=== PATIENT | female | born 1945 | race Two or more races ===

== ENCOUNTER 2024-04-18 10:09 | Outpatient (AMB) | payer MEDICARE, SELFPAY ==
--- NOTE | 2024-04-18 10:24 | PD.ORTHCLVIS ---
Vital signs 04/18/24 10:28 Height 1.57 m Height Method Stated Weight 61.008 kg Weight Measurement Method Standing Scale BMI 24.5 BP 127/79 Blood Pressure Source Automatic Cuff Blood Pressure Location Right Upper Arm Position Sitting Respiration 18 Pulse 64 Pulse Source Monitor Temp 97.3 F Temp Source Temporal Artery Scan Pulse Oximetry (%) 99 Oxygen Delivery Method Room Air Med/Allergies Allergies & Medications Allergies NKA* Allergy (Uncoded 04/18/24 10:24) Medication Reconciliation Levothyroxine * (SYNTHROID *) 75 mcg PO QDAY 30 days ##0 10/08/15 [History Confirmed 04/18/24] Lisinopril/Hydrochlorothiazide (Lisinopril-Hctz 20/25 Mg Tab) 1 mg PO QDAY 90 days ##0 10/08/15 [History Confirmed 04/18/24] gabapentin 100 mg capsule 100 mg PO TID 60 days ##0 10/08/15 [History] diclofenac sodium 50 mg tablet,delayed release 50 mg PO BID ##0 12/08/16 [History] acetaminophen 650 mg tablet,extended release (Tylenol 8 Hour) 650 mg PO Q8H #30 tabs 05/22/23 [Rx] hydrocodone 5 mg-acetaminophen 325 mg tablet 1 tab PO Q8H PRN pain #10 tabs 05/22/23 [Rx] atorvastatin 20 mg/5 mL (4 mg/mL) oral suspension 20 mg PO QDAY 04/18/24 [History Confirmed 04/18/24] celecoxib 200 mg capsule 200 mg PO QDAY 04/18/24 [History Confirmed 04/18/24] cholecalciferol (vitamin D3) 50 mcg (2,000 unit) capsule 50 mcg PO QDAY 04/18/24 [History Confirmed 04/18/24] clotrimazole 1 % topical solution 1 applic topical BID 04/18/24 [History Confirmed 04/18/24] terbinafine 250 mg oral tablet-hydroxypropyl chitosan 1 % topical kit ea miscellaneous 04/18/24 [History Confirmed 04/18/24] Subjective Visit Visit for: new patient and knee (RIGHT) Immunization / Flu Flu Vaccine in the Last 12 Months: Yes Flu Vaccine Exclusion Criteria: Already Received History of Present Illness Patient is a 78-year-old female comes in today for right knee pain has been going on for several years. Per daughter at bedside who is translating, patient has been having significant pain to her right knee for some time. Pain is present to her bilateral knees but significantly worse to her right knee. Patient obtained an x-ray imaging and 1 injection last year but since then she has had no other injections or imaging done. Patient has tried pain medications but not but not fully resolved it. No physical therapy has been done prior to coming into today. Daughter mentions that patient ambulates with dragging of her right foot as well. Patient also ambulates with a cane. Pain Pain level (0-10): 8 Pain duration: WITH MOVEMENT ALL DAY Pain location: inside (medial), outside (lateral), anterior and posterior Pain quality: sharp, dull, aching and shocking Pain timing: night and increases with activity Associated signs & symptoms: none Ambulatory data Ambulatory device: cane Treatments Number of previous injections: 1 Improvement with previous injections: No Improvement with PT: No Improvement with NSAIDS: no Review of Systems Review of Systems: All systems negative unless otherwise noted in HPI. Assessment and Plan Advanced Care Planning Discussion Advance care planning discussed with:: patient Office Procedures GNS Level of Care Nursing/Assessment Patient Status: Established Patient Nursing Assessment/Reassesment: Medication Reconciliation, Update PMH in EMR and Vital Signs Coordination of Care: Complex Care and Chronic Disease 1-5, Education Complex Pt/Fam, Consent,records obtained, informed consent, 1 Ins Authorization and Staff clarify orders Established Patient Charge Established Patient Point Assignment: 105 Established Patient Point Charge: EP Level 3 (80-115) Past Medical History Past Medical History Have you ever been diagnosed with any of the following: Respiratory Problems Smoking: No Smoking Exposure: No
[2024-04-18 10:28] VITALS: BP 127/79; PULSE 64; RESP 18; TEMP 36.3; O2SAT 99; BMI 24.5
== END 2024-04-18 10:46 | disposition home or self-care (01) ==
LOC: HODSRG 10:09
PROVIDERS: PCP Physician Assistant Medical; Referring Provider Physician Assistant Medical; Supervising Provider Orthopaedic Surgery Adult Reconstructive Orthopaedic Surgery; Visit Provider Orthopaedic Surgery Adult Reconstructive Orthopaedic Surgery
DX: M25.561 Pain in right knee (principal); M25.562 Pain in left knee
CPT/HCPCS: 99213; G0463

== ENCOUNTER 2024-05-05 10:22 | Outpatient (AMB) | payer MEDICARE, SELFPAY ==
[2024-05-05 10:44] VITALS: BP 146/85; PULSE 73; RESP 19; TEMP 36.6; O2SAT 98; BMI 24.7
--- NOTE | 2024-05-05 10:44 | ORTHONT_ITS ---
Vital signs 05/05/24 10:44 Height 1.57 m Height Method Stated Weight 60.98 kg Weight Measurement Method Standing Scale BMI 24.7 BP 146/85 H Blood Pressure Source Automatic Cuff Blood Pressure Location Left Upper Arm Position Sitting Respiration 19 Pulse 73 Pulse Source Monitor Temp 97.8 F Temp Source Temporal Artery Scan Pulse Oximetry (%) 98 Oxygen Delivery Method Room Air Med/Allergies Allergies & Medications Allergies NKA* Allergy (Uncoded 05/05/24 10:44) Medication Reconciliation Levothyroxine * (SYNTHROID *) 75 mcg PO QDAY 30 days ##0 10/08/15 [History Confirmed 05/05/24] Lisinopril/Hydrochlorothiazide (Lisinopril-Hctz 20/25 Mg Tab) 1 mg PO QDAY 90 days ##0 10/08/15 [History Confirmed 05/05/24] gabapentin 100 mg capsule 100 mg PO TID 60 days ##0 10/08/15 [History Confirmed 05/05/24] diclofenac sodium 50 mg tablet,delayed release 50 mg PO BID ##0 12/08/16 [History Confirmed 05/05/24] acetaminophen 650 mg tablet,extended release (Tylenol 8 Hour) 650 mg PO Q8H #30 tabs 05/22/23 [Rx Confirmed 05/05/24] hydrocodone 5 mg-acetaminophen 325 mg tablet 1 tab PO Q8H PRN pain #10 tabs 05/22/23 [Rx Confirmed 05/05/24] atorvastatin 20 mg/5 mL (4 mg/mL) oral suspension 20 mg PO QDAY 04/18/24 [History Confirmed 05/05/24] celecoxib 200 mg capsule 200 mg PO QDAY 04/18/24 [History Confirmed 05/05/24] cholecalciferol (vitamin D3) 50 mcg (2,000 unit) capsule 50 mcg PO QDAY 04/18/24 [History Confirmed 05/05/24] clotrimazole 1 % topical solution 1 applic topical BID 04/18/24 [History Confirmed 05/05/24] terbinafine 250 mg oral tablet-hydroxypropyl chitosan 1 % topical kit ea mis cellaneous 04/18/24 [History Confirmed 05/05/24] Subjective Visit Visit for: follow up visit Immunization / Flu Flu Vaccine in the Last 12 Months: No Flu Vaccine Exclusion Criteria: No Exclusion Criteria History of Present Illness Chief complaint: 2 WEEK FOLLOW UP Patient is a 78-year-old female comes in today for right knee pain has been going on for several years. Per daughter at bedside who is translating, patient has been having significant pain to her right knee for some time. Pain is present to her bilateral knees but significantly worse to her right knee. Patient obtained an x-ray imaging and 1 injection last year but since then she has had no other injections or imaging done. Patient has tried pain medications but not but not fully resolved it. No physical therapy has been done prior to coming into today. Daughter mentions that patient ambulates with dragging of her right foot as well. Patient also ambulates with a cane. Pain Pain level (0-10): 0 Pain duration: WITH MOVEMENT ALL DAY Pain location: inside (medial), outside (lateral), anterior and posterior Pain quality: sharp, dull, aching and shocking Pain timing: night and increases with activity Associated signs & symptoms: none Ambulatory data Ambulatory device: cane Treatments Number of previous injections: 1 Improvement with previous injections: No Improvement with PT: No Improvement with NSAIDS: no Review of Systems Review of Systems: All systems negative unless otherwise noted in HPI. Exam Exam Patient is in no acute distress and is cooperative with the examination today. Breathing is nonlabored. Patient has a normal mood and affect. Bilateral extremities were evaluated and demonstrates sensation intact to light touch. Palpable pedal pulses are present. No significant edema is present. Bilateral hips were examined. The patient has no pain with log roll of the hips. Internal rotation to 30 degrees and external rotation to 30 degrees is painless. Negative FADIR. Left knee was examined today. The left knee is in reasonable alignment. Range of motion from 0-120 degrees. Knee is stable to varus and valgus as well as AP translation with <5mm. Patient has a negative McMurrays. There is no pain with patellofemoral compression and no crepitus noted. The knee is nontender to pal pation. The right knee was also examined. The right knee is in valgus] alignment. Range of motion from [0-100 degrees. Knee is stable to varus and valgus as well as AP translation with <5mm. Patient has a [negative] McMurrays. There is [no] pain with patellofemoral compression and [no] crepitus noted. The knee is tender to palpation laterally Bilateral knee x-rays were reviewed. This demonstrates valgus alignment of both knees. Is complete obliteration of the lateral joint space and osteophytes present. There is quite a bit of tibial wear laterally Assessment and Plan Problem List (1) Rheumatoid arthritis: Status: Acute Plan: Patient is a 78-year-old female with bilateral knee pain and rheumatoid arthritis. The pain is worse on the right. We discussed total knee replacement is a reasonable option. She is already failed conservative treatment has significant valgus alignment. She has tried injections anti-inflammatories in the past. We thus discussed total knee replacement as a reasonable option The nature and purpose of the total knee replacement, alternative method(s) of treatment, the material risks involved, and the possibility of complications were fully explained to the patient. The patient does NOT have any of the following contraindications to TKA: - Active infection of the knee joint, OR - Active systemic bacteremia, OR - Active skin infection or open wound at surgical site, OR - Neuropathic arthritis, OR - Severe, rapidly progressive neurological disease, OR - Severe medical condition that makes risks of surgery outweigh the potential benefit The patient was told the most common risks and complications associated with a total knee replacement include, but are not limited to: blood clots in the leg, fatal pulmonary embolism, dislocation of the prosthesis, intraoperative and postoperative fractures of the femur or tibia, infection, failure of the prosthesis or grafting materials, complications from anesthesia, reactions to blood transfusions, postoperative leg length inequality, instability of the knee replacement, nerve damage or injury, vascular injury, delayed wound healing, infection, other injury or even . In addition, there are risks associated with anesthesia given during this operation. Also, the patient was told that after undergoing a total knee replacement there may still be persistent pain or disability. The patient was informed that the success of this operation in part depends upon the mechanical devices which are going to be implanted and that these devices can fail or malfunction, and may need to be repaired or replaced and there are no guarantees as to the longevity of this device or its parts and that it or its parts could fail prematurely. The patient was also notified that during the course of surgery, there may be a need to use bone graft from donors, and that any bone graft used will be carefully screened for communicable diseases, including AIDS, hepatitis, Adin-Creutzfeldt, or other diseases, but despite the screening procedures, there is a small chance that they could contract one of these diseases. Finally, the patient was asked to follow completely and fully with all advice and recommended treatments, and that recovery and ultimate outcome are affected by their compliance with recommended treatment. We discussed the risks, benefits and treatment alternatives, and the patient is interested in proceeding with surgery. We will try to set this up as expeditiously as possible. Advanced Care Planning Discussion Advance care planning discussed with:: patient Office Procedures GNS Level of Care Nursing/Assessment Patient Status: Established Patient Nursing Assessment/Reassesment: Medication Reconciliation, Update PMH in EMR and Vital Signs Coordination of Care: Complex Care and Chronic Disease 1-5, Education Complex Pt/Fam, Consent,records obtained, informed consent and Staff clarify orders Established Patient Charge Established Patient Point Assignment: 90 Established Patient Point Charge: EP Level 3 (80-115) Past Medical History Past Medical History Have you ever been diagnosed with any of the following: Respiratory Problems Smoking: No Smoking Exposure: No
== END 2024-05-05 11:07 | disposition home or self-care (01) ==
LOC: HODSRG 10:22
PROVIDERS: Supervising Provider Orthopaedic Surgery Adult Reconstructive Orthopaedic Surgery; Visit Provider Orthopaedic Surgery Adult Reconstructive Orthopaedic Surgery
DX: M06.9 Rheumatoid arthritis, unspecified (principal); M25.562 Pain in left knee; M25.561 Pain in right knee
CPT/HCPCS: 99213; G0463

== ENCOUNTER → 2024-05-31 | Outpatient (CLI) | payer MEDICARE, SELFPAY ==
--- NOTE | 2024-05-31 12:30 | XR_ITS ---
Examination: CT right lower extremity without contrast, without contrast. 2-D sagittal reconstructions. 2-D coronal reconstructions. 3-D reconstructions. Date and time of exam:May 31, 2024 1105 hours INDICATIONS: Right knee pain beginning 2 years ago CTDI: vol (mGy):9.45 DLP: (mGycm):6 7066 Technique: Multiple 1.25 mm axial sections of the right lower extremity without intravenous contrast have been obtained. 2-D sagittal and coronal reconstructions have been obtained. 3-D reconstructions have been obtained. Low dose protocols were performed. One or more of the following dose reduction techniques were used; automated exposure control, adjustment of the mA and/or KV according to patient size, use of iterative reconstruction technique. Findings: Prominent osteopenia Moderate to advanced narrowing right hip joint, no hip fracture or dislocation No avascular necrosis Advanced narrowing medial lateral and patellofemoral joints Ossifications in the suprapatellar joint space No fracture No avascular necrosis IMPRESSION: Advanced right knee tricompartment osteoarthritis
== END | disposition home or self-care (01) ==
PROVIDERS: PCP Physician Assistant Medical; Referring Provider Orthopaedic Surgery Adult Reconstructive Orthopaedic Surgery; Visit Provider Orthopaedic Surgery Adult Reconstructive Orthopaedic Surgery
DX: M17.11 Unilateral primary osteoarthritis, right knee (principal)
CPT/HCPCS: 73700

== ENCOUNTER 2024-06-13 09:41 | Outpatient (AMB) | payer MEDICARE, SELFPAY ==
[2024-06-13 10:18] VITALS: BP 123/86; PULSE 73; RESP 18; TEMP 36; O2SAT 99; BMI 24.6
--- NOTE | 2024-06-13 10:18 | ORTHONT_ITS ---
Vital signs 06/13/24 10:18 Height 1.57 m Height Method Stated Weight 60.81 kg Weight Measurement Method Standing Scale BMI 24.6 BP 123/86 H Blood Pressure Source Automatic Cuff Blood Pressure Location Left Upper Arm Position Sitting Respiration 18 Pulse 73 Pulse Source Monitor Temp 96.8 F Temp Source Temporal Artery Scan Pulse Oximetry (%) 99 Oxygen Delivery Method Room Air Med/Allergies Allergies & Medications Allergies NKA* Allergy (Uncoded 06/13/24 10:18) Medication Reconciliation Levothyroxine * (SYNTHROID *) 75 mcg PO QDAY 30 days ##0 10/08/15 [History Confirmed 06/13/24] Lisinopril/Hydrochlorothiazide (Lisinopril-Hctz 20/25 Mg Tab) 1 mg PO QDAY 90 days ##0 10/08/15 [History Confirmed 06/13/24] gabapentin 100 mg capsule 100 mg PO TID 60 days ##0 10/08/15 [History Confirmed 06/13/24] diclofenac sodium 50 mg tablet,delayed release 50 mg PO BID ##0 12/08/16 [History Confirmed 06/13/24] acetaminophen 650 mg tablet,extended release (Tylenol 8 Hour) 650 mg PO Q8H #30 tabs 05/22/23 [Rx Confirmed 06/13/24] hydrocodone 5 mg-acetaminophen 325 mg tablet 1 tab PO Q8H PRN pain #10 tabs 05/22/23 [Rx Confirmed 06/13/24] atorvastatin 20 mg/5 mL (4 mg/mL) oral suspension 20 mg PO QDAY 04/18/24 [History Confirmed 06/13/24] celecoxib 200 mg capsule 200 mg PO QDAY 04/18/24 [History Confirmed 06/13/24] cholecalciferol (vitamin D3) 50 mcg (2,000 unit) capsule 50 mcg PO QDAY 04/18/24 [History Confirmed 06/13/24] clotrimazole 1 % topical solution 1 applic topical BID 04/18/24 [History Confirmed 06/13/24] terbinafine 250 mg oral tablet-hydroxypropyl chitosan 1 % topical kit ea mis cellaneous 04/18/24 [History Confirmed 06/13/24] Subjective Visit Visit for: follow up visit and knee (RIGHT) Immunization / Flu Flu Vaccine in the Last 12 Months: No Flu Vaccine Exclusion Criteria: No Exclusion Criteria History of Present Illness Chief complaint: PRE OP R TKA Patient is a 78-year-old female comes in today for right knee pain has been going on for several years. Per daughter at bedside who is translating, patient has been having significant pain to her right knee for some time. Pain is present to her bilateral knees but significantly worse to her right knee. Patient obtained an x-ray imaging and 1 injection last year but since then she has had no other injections or imaging done. Patient has tried pain medications but not but not fully resolved it. No physical therapy has been done prior to coming into today. Daughter mentions that patient ambulates with dragging of her right foot as well. Patient also ambulates with a cane. Pain Pain level (0-10): 6 Pain duration: CONSTANT Pain location: inside (medial) Pain quality: aching Pain timing: night and increases with activity Associated signs & symptoms: none Ambulatory data Ambulatory device: cane Treatments Number of previous injections: 1 Improvement with previous injections: No Improvement with PT: No Improvement with NSAIDS: no Review of Systems Review of Systems: All systems negative unless otherwise noted in HPI. Exam Exam Patient is in no acute distress and is cooperative with the examination today. Breathing is nonlabored. Patient has a normal mood and affect. Bilateral extremities were evaluated and demonstrates sensation intact to light touch. Palpable pedal pulses are present. No significant edema is present. Bilateral hips were examined. The patient has no pain with log roll of the hips. Internal rotation to 30 degrees and external rotation to 30 degrees is painless. Negative FADIR. Left knee was examined today. The left knee is in reasonable alignment. Range of motion from 0-120 degrees. Knee is stable to varus and valgus as well as AP translation with <5mm. Patient has a negative McMurrays. There is no pain with patellofemoral compression and no crepitus noted. The knee is nontender to palpation. The right knee was also examined. The right knee is in valgus] alignment. Range of motion from [0-100 degrees. Knee is stable to varus and valgus as well as AP translation with <5mm. Patient has a [negative] McMurrays. There is [no] pain with patellofemoral compression and [no] crepitus noted. The knee is tender to palpation laterally Bilateral knee x-rays were reviewed. This demonstrates valgus alignment of both knees. Is complete obliteration of the lateral joint space and osteophytes present. There is quite a bit of tibial wear laterally Assessment and Plan Problem List (1) Rheumatoid arthritis: Status: Acute Plan: Patient is a 78-year-old female with bilateral knee pain and rheumatoid arthritis. The pain is worse on the right. We discussed total knee replacement is a reasonable option. She is already failed conservative treatment has significant valgus alignment. She has tried injections anti-inflammatories in the past. We thus discussed total knee replacement as a reasonable option. She is here for her preop appointment and we answered all her questions today The nature and purpose of the total knee replacement, alternative method(s) of treatment, the material risks involved, and the possibility of complications were fully explained to the patient. The patient does NOT have any of the following contraindications to TKA: - Active infection of the knee joint, OR - Active systemic bacteremia, OR - Active skin infection or open wound at surgical site, OR - Neuropathic arthritis, OR - Severe, rapidly progressive neurological disease, OR - Severe medical condition that makes risks of surgery outweigh the potential benefit The patient was told the most common risks and complications associated with a total knee replacement include, but are not limited to: blood clots in the leg, fatal pulmonary embolism, dislocation of the prosthesis, intraoperative and postoperative fractures of the femur or tibia, infection, failure of the prosthesis or grafting materials, complications from anesthesia, reactions to blood transfusions, postoperative leg length inequality, instability of the knee replacement, nerve damage or injury, vascular injury, delayed wound healing, infection, other injury or even . In addition, there are risks associated with anesthesia given during this operation. Also, the patient was told that after undergoing a total knee replacement there may still be persistent pain or disability. The patient was informed that the success of this operation in part depends upon the mechanical devices which are going to be implanted and that these devices can fail or malfunction, and may need to be repaired or replaced and there are no guarantees as to the longevity of this device or its parts and that it or its parts could fail prematurely. The patient was also notified that during the course of surgery, there may be a need to use bone graft from donors, and that any bone graft used will be carefully screened for communicable diseases, including AIDS, hepatitis, Adin-Creutzfeldt, or other diseases, but despite the screening procedures, there is a small chance that they could contract one of these diseases. Finally, the patient was asked to follow completely and fully with all advice and recommended treatments, and that recovery and ultimate outcome are affected by their compliance with recommended treatment. We discussed the risks, benefits and treatment alternatives, and the patient is interested in proceeding with s gianna. We will try to set this up as expeditiously as possible. Advanced Care Planning Discussion Advance care planning discussed with:: patient Office Procedures GNS Level of Care Nursing/Assessment Patient Status: Established Patient Nursing Assessment/Reassesment: Medication Reconciliation, Update PMH in EMR and Vital Signs Coordination of Care: Complex Care and Chronic Disease 1-5, Education Complex Pt/Fam, Consent,records obtained, informed consent, 1 Ins Authorization, Results/Orders obtained and Staff clarify orders Established Patient Charge Established Patient Point Assignment: 110 Established Patient Point Charge: EP Level 3 (80-115) Past Medical History Past Medical History Have you ever been diagnosed with any of the following: Respiratory Problems Smoking: No Smoking Exposure: No
== END 2024-06-13 10:34 | disposition home or self-care (01) ==
PROVIDERS: PCP Family Medicine; Referring Provider Family Medicine; Supervising Provider Orthopaedic Surgery Adult Reconstructive Orthopaedic Surgery; Visit Provider Orthopaedic Surgery Adult Reconstructive Orthopaedic Surgery
DX: M06.9 Rheumatoid arthritis, unspecified (principal); M25.562 Pain in left knee; M25.561 Pain in right knee
CPT/HCPCS: 99213; G0463

== ENCOUNTER 2024-06-19 05:50 | Day surgery (SDC) | payer MEDICARE, SELFPAY ==
--- NOTE | 2024-06-16 07:19 | EKG_ITS ---
[facility] Test Date: 2024-06-16 Pat Name: SIN ARAIZA Department: Room: - Gender: Female Sequins Slinger: JOHN : 1945 Requested By: Ernesto Schwartz Order Number: [id number] Reading MD: Ernesto Schwartz Measurements Intervals Craig Rate: 77 P: 49 UT: 145 QRS: 38 QRSD: 81 T: 38 QT: 368 QTc: 416 Interpretive Statements SINUS RHYTHM No previous ECG available for comparison /store/S0/[id number].pdf
[2024-06-16 10:43] VITALS: BMI 25.3
[2024-06-16 12:15] LABS: Basophils % (Auto) 1 % (0-2.5); Eosinophils # (Auto) 0.1 Thou/mm3 (0.0-0.5); Eosinophils % (Auto) 2 % (0-10); Hematocrit 40.4 % (36.0-46.0); Hemoglobin 13.6 g/dL (12.0-16.0); Immature Granulocytes % (Auto) 0 % (0-0); Immature Granulocytes Auto 0.01 Thou/mm3 (0.00-0.00); Lymphocytes # (Auto) 1.2 Thou/mm3 (1.0-4.8); Lymphocytes % (Auto) 21 % (10-50); Mean Corpuscular HGB Conc 33.7 g/dl (31.0-37.0); Mean Corpuscular Hemoglobin 31.1 pg (25.0-35.0); Mean Corpuscular Volume 92 fL (80-100); Monocytes # (Auto) 0.5 Thou/mm3 (0.0-0.8); Monocytes % (Auto) 9 % (0-12); Neutrophils # (Auto) 3.8 Thou/mm3 (1.8-7.7); Neutrophils % (Auto) 68 % (37-80); Nucleated Red Blood Cell % 0 /100 WBC (0); Platelet Count 226 Thou/mm3 (140-440); Red Blood Count 4.38 Miln/mm3 (4.00-5.20); White Blood Count 5.6 Thou/mm3 (3.6-11.0)
[2024-06-16 12:23] LABS: Partial Thromboplastin Time 24.6 Seconds (22.0-36.0)
[2024-06-16 12:43] LABS: Alanine Aminotransferase 14 U/L (10-49); Albumin, Serum 4.2 gm/dL (3.4-4.8); Albumin/Globulin Ratio 1.8 (1.2-2.2); Alkaline Phosphatase 90 U/L (46-116); Anion Gap 8 (7-16); Aspartate Amino Transferase 16 U/L (0-34); BUN/Creatinine Ratio 20 Ratio (12-20); Bilirubin,Total 0.4 mg/dL (0.3-1.2); Blood Urea Nitrogen 18 mg/dL (9-23); Calcium 9.8 mg/dL (8.3-10.6); Calcium (Corrected) 9.8 mg/dL (8.5-10.1); Carbon Dioxide 28.5 mMol/L (20.0-31.0); Chloride 105 mMol/L (98-107); Creatinine (Component) 0.9 mg/dL (0.6-1.3); Estimated Creatinine Clearance 44.5 mL/min (>60); Globulin 2.4 gm/dL (2.3-3.5); Glucose 93 mg/dL (74-106); Osmolality,Calculated 283 (275-295); Potassium 4.5 mMol/L (3.4-5.1); Sodium 141 mMol/L (136-145); Total Protein 6.6 gm/dL (5.7-8.2); eGFR > 60 See Note
[2024-06-19] VITALS (13 sets, daily range): BP systolic 104–151; BP diastolic 54–75; PULSE 71–94; RESP 12–20; TEMP 36.1–36.9; O2SAT 98–100; BMI 25.0; BMI 13.0
[2024-06-19] MEDS: ACETAMINOPHEN 325 MG TABLET 650 MG PO (06:47)
[2024-06-19] MEDS: PREGABALIN 75 MG CAPSULE PO (06:47)
[2024-06-19] MEDS: MELOXICAM 7.5 MG TABLET PO (06:47)
[2024-06-19] MEDS: RINGERS LACTATED 1000 ML 1,000 ML 20 ML IV (06:52)
--- NOTE | 2024-06-19 10:17 | SUR.PHASEI ---
pt received from OR in recovery bay 1. pt awake and alert, breathing unlabored on room air. v/s stable. pt dressing to right lower extremity cdi. report received from Charley MADSEN and Roula OBANDO.
--- NOTE | 2024-06-19 10:17 | SUR.PHASEI ---
pt received from OR in recovery bay 5. pt awake and alert, breathing unlabored on room air. v/s stable. pt dressing to right lower extremity cdi. report received from Charley MADSEN and Roula OBANDO.
--- NOTE | 2024-06-19 10:17 | XR_ITS ---
Examination: Right knee 2 views TECHNIQUE: AP lateral right knee 2 views Exam date and time: June 19, 2024 1042 hours INDICATIONS: Postop knee arthroplasty FINDINGS: Prominent osteopenia Total right knee replacement Satisfactory alignment IMPRESSION: Total right knee arthroplasty with satisfactory alignment No fracture
--- NOTE | 2024-06-19 10:20 | ESOP_ITS ---
Date of Procedure 06/19/24 Pre Op Diagnosis right knee osteoarthritis Post Op Diagnosis right knee osteoarthritis Procedure right total knee replacement Findings valgus deformity, soft bone. Procedure Description Indication: The patient is a 78 year old who has a long history of right knee pain. X-rays show degenerative arthritis involving the knee. Over the past several years the patient has had increasing pain, progressive limitation in function. He has failed conservative measures including activity modification, physical therapy, injections, anti-inflammatories, and assistive devices. After a lengthy discussion of the risks and benefits, the patient presents now for total knee replacement. The nature and purpose of the total knee replacement, alternative method(s) of treatment, the material risks involved, and the possibility of complications were fully explained to the patient. The patient was told the most common risks and complications associated with a total knee replacement include, but are not limited to blood clots in the leg, fatal pulmonary embolism, dislocation of the prosthesis, intraoperative and postoperative fractures of the femur or tibia, infection, failure of the prosthesis or grafting materials, complications from anesthesia, reactions to blood transfusions, postoperative leg length inequality, instability of the knee replacement, nerve damage or injury, vascular injury, delayed wound healing, infections, other injury or even . In addition, there are risks associated with anesthesia given during this operation, temporary or permanent numbness on the skin lateral to the incision can be a complication unique to total knee surgery, and kneeling can be painful after knee replacement surgery. Also, the patient was told that after undergoing a total knee replacement there may still be pain or disability. We discussed with the patient that we will be using a robot-assisted technology. We discussed that there is a possibility of converting to manual instrumentation. The patient was informed that the success of this operation in part depends upon the mechanical devices which are going to be implanted and that these devices can fail or malfunction, and may need to be repaired or replaced and there are no guarantees as to the longevity of this device or its part and that it or its parts could fail prematurely. Finally, the patient was asked to follow completely and fully with all advice and recommended treatments, and that recovery and ultimate outcome are affected by their compliance with recommended treatment. Surgical technique: Patient was marked and consented in the pre-operative area. The patient was brought to the operating room and placed on the operating table in a supine position. Prior to positioning, a timeout procedure was performed between the surgeon, the anesthesiologist, and the nursing staff where the patient and the operative side were identified and confirmed. After adequate general anesthetic was obtained, the right lower extremity was prepped and draped in the usual sterile fashion. A weight based dose of Cefazolin were administered within 1 hour prior to incision. The robot was preregistered and calirated before the incision. The extremity was exsanguinated with an esmarch badge and tourniquet inflated to 250mmHg. A midline incision was made. A median parapatellar arthrotomy was made. The patella was subluxed laterally. A medial release was performed to expose the medial tibia. His femoral and tibial pins were placed through an intra incisional manner for both cases. Every effort was made to ensure that the distalmost aspect of the pin was hung in the second cortex. The arrays were then tightened several times to ensure that it was fixed for the remainder of the case. Both femoral and tibial checkpoints were then placed. We then went through the registration process of the bone. We then assessed the knee deformity and attempted to correct it. We also used the robot to aid in judging laxity in both extension and flexion. Final based on laxity and alignment we changed the preoperative assessment to obtain proper proper implant positioning and to correct deformity. Attention was then placed to the tibia. We made a tibial cut using the robot ensuring that both the MCL and the patella tendon were protected with retractors. We then went to the femur and made the posterior cut followed by the anterior cut and the anterior chamfer. Her bone quality was found to be quite poor. The decision was thus made to use a 50mm stem. The bone was then removed and we made a distal femur cut and a posterior chamfer cut. We verified all cuts. A trial reduction was performed with a size 2 femoral component and a size 2 keeled tibial component with a 50mm stem. The patella tracked centrally, and no lateral retinacular release was necessary. The trial implants were removed. We decided to place a TS stem and prepared the femur for this. The arrays, pins, and checkpoints were all removed. We performed a verification that all pins were removed. The cut bone surfaces were lavaged. A size 2 right femoral component, a size 2 keeled tibial component were impacted into position using 2 bags of palacos. The knee was placed in extension until the cement hardened. The knee was felt to be well balanced in the sagittal and coronal plane. The final 2x11 mm TS articular insert was impacted into the tibial tray. The knee was brought out to full extension, flexed up to 120 degrees. It was stable to varus and valgus stress and appropriately balanced in flexion and extension. The wounds were copiously irrigated following deflation of tourniquet. The medial retinaculum was reapproximated with #1 vicryl and quill. The subcutaneous tissues were closed with 0 and 2-0 interrupted Vicryl. The skin was closed with 3-0 Monofilament V loc suture. A sterile dressing was applied. The patient was transferred to a bed and brought to recovery in stable condition. The patient tolerated the procedure well. There were no intraoperative complications. Sponge and needle counts were correct times 2. As the attending surgeon, I attest I was present and performed the entire operation. Grafts/Implants Size 2 CR Femur Size 2 Tibia 11mm poly TS 2 bags of palacos We placed a knee immobilizer on her given her soft tissue and poor bone quality. We will maintain the knee immobilizer for 2-4 weeks. She is WBAT Anesthesia GETA Implants aura Pathology / specimen None Pathology comment: anterior knee tissue sent Estimated Blood Loss 150 Surgeon Simone Israel MD Surgical Staff Operation Date: 06/19/24 07:30 Case Staff INSURANCE PREMIUM AUDITOR: Charley Krishnamurthy RN First Assistant: Renetta Ochoa
[2024-06-19] MEDS: fentaNYL CIT INJ 50 mCg/ML AMP 2ML 25 MCG IV ×2 (11:13→11:59)
--- NOTE | 2024-06-19 11:44 | SUR.PHASEII ---
pt able to tolerate oral fluids and food without difficulty swallowing or nausea/vomiting.
--- NOTE | 2024-06-19 12:58 | SUR.PHASEII ---
pt awake and alert, breathing unlabored on room air. v/s stable. pt dressing to right lower extremity cdi. pt cleared by physical therapist Keiko. pt able to ambulate to wheelchair with steady gait. d/c instructions given with daughter and grandson in room using japanese interpreter Maggie salter, all questions answered. pt d/c via wheelchair with all belongings.
== END 2024-06-19 12:58 | disposition home or self-care (01) ==
PROVIDERS: Anesthesiology; PCP Family Medicine; Referring Provider Orthopaedic Surgery Adult Reconstructive Orthopaedic Surgery; Visit Provider Orthopaedic Surgery Adult Reconstructive Orthopaedic Surgery
PROC: (CPT 27447; principal; 2024-06-19 07:30)
DX: M17.11 Unilateral primary osteoarthritis, right knee (principal); Z01.810 Encounter for preprocedural cardiovascular examination
CPT/HCPCS: 27447; 20985; 36415; 73560; 80053; 85025; 85610; 85730; 93005; 97162; A4217; C1713; C1776; J0131; J0171; J0690; J1100; J1885; J2371; J2405; J2704; J2795; J3010; J3490; J7030; J7120; A4648; A4649; A9270

== ENCOUNTER 2024-07-07 09:40 | Outpatient (AMB) | payer MEDICARE, SELFPAY ==
--- NOTE | 2024-07-07 09:56 | PD.ORTHCLVIS ---
Vital signs 07/07/24 09:57 Height 1.55 m Height Method Stated Weight 59.619 kg Weight Measurement Method Standing Scale BMI 24.8 BP 114/76 Blood Pressure Source Automatic Cuff Blood Pressure Location Left Upper Arm Position Sitting Respiration 18 Pulse 92 Pulse Source Monitor Temp 97.0 F Temp Source Temporal Artery Scan Pulse Oximetry (%) 98 Oxygen Delivery Method Room Air Med/Allergies Allergies & Medications Allergies No Known Allergies Allergy (Verified 07/07/24 09:58) Medication Reconciliation atorvastatin 20 mg tablet 20 mg PO QPM 06/16/24 [History Confirmed 07/07/24] celecoxib 200 mg capsule 200 mg PO BID 06/16/24 [History Confirmed 07/07/24] cholecalciferol (vitamin D3) 50 mcg (2,000 unit) tablet (Vitamin D3) 50 mcg PO QDAY 06/16/24 [History Confirmed 07/07/24] levothyroxine 50 mcg capsule 50 mcg PO QDAY 06/16/24 [History Confirmed 07/07/24] lisinopril 20 mg tablet 20 mg PO QDAY 06/16/24 [History Confirmed 07/07/24] terbinafine HCl 250 mg tablet 250 mg PO QDAY 06/16/24 [History Confirmed 07/07/24] acetaminophen 500 mg tablet (Acetaminophen Extra Strength) 1,000 mg (2 x 500 mg) PO Q6H PRN pain #90 tabs 06/19/24 [Rx Confirmed 07/07/24] aspirin 81 mg tablet,delayed release 81 mg PO BID #60 tabs 06/19/24 [Rx Confirmed 07/07/24] doxycycline hyclate 100 mg tablet 100 mg PO BID #14 tabs 06/19/24 [Rx Confirmed 07/07/24] gabapentin 300 mg capsule 300 mg PO .qhs #30 caps 06/19/24 [Rx Confirmed 07/07/24] sennosides 8.6 mg-docusate sodium 50 mg tablet (Senna-S) 1 tab-cap PO QDAY #30 tabs 06/19/24 [Rx Confirmed 07/07/24] oxycodone 5 mg tablet 5 mg PO Q6H PRN pain #28 tabs 07/03/24 [Rx Confirmed 07/07/24] Exam Exam Patient is in no acute distress and is cooperative with the examination today. Breathing is nonlabored. Patient has a normal mood and affect. Bilateral extremities were evaluated and demonstrates sensation intact to light touch. Palpable pedal pulses are present. No significant edema is present. Bilateral hips were examined. The patient has no pain with log roll of the hips. Internal rotation to 30 degrees and external rotation to 30 degrees is painless. Negative FADIR. Left knee was examined today. The left knee is in reasonable alignment. Range of motion from 0-120 degrees. Knee is stable to varus and valgus as well as AP translation with <5mm. Patient has a negative McMurrays. There is no pain with patellofemoral compression and no crepitus noted. The knee is nontender to palpation. Right knee incisions clean and dry and intact Range of motion is 0 to 100 degrees Assessment and Plan Problem List (1) Rheumatoid arthritis: Status: Acute Plan: Patient is a 78-year-old female with right knee pain and right knee rheumatoid arthritis. She is status post right total knee replacement and is doing well. She has mild pain. We remove the knee immobilizer today. We discussed that intraoperatively she had very soft bone. We did use a semiconstrained liner. The patient is doing well. Will see her in approximately 4 weeks with new x-rays. She can work on her range of motion Advanced Care Planning Discussion Advance care planning discussed with:: patient Office Procedures GNS Level of Care Nursing/Assessment Patient Status: Established Patient Nursing Assessment/Reassesment: Medication Reconciliation, Update PMH in EMR and Vital Signs Coordination of Care: Complex Care and Chronic Disease 1-5, Education Complex Pt/Fam, Consent,records obtained, informed consent, 1 Ins Authorization, Lab and Imaging orders, Results/Orders obtained and Staff clarify orders Established Patient Charge Established Patient Point Assignment: 125 Established Patient Point Charge: EP Level 4 (120-155) MA Intake Visit Data Collection New Patient or Established: Established Patient (seen at [facility] within 3 years) Reason for Visit:: F/U Seen by Clinical Staff ONLY (RN/MA): No Auxiliary Engineer Required: No PCP or OBGYN visit in last 3 months: Yes Hx Now: No Do You Feel Safe at Home: Yes Authorities Contacted: N/A Questionairres Past Medical History Past Medical History Have you ever been diagnosed with any of the following: Neurological Problems Seizures: No Cardiology Problems Hypercholesterolemia: Yes Congestive Heart Failure: No Hypertension: Yes Respiratory Problems Chronic Obstructive Pulmonary Disease (COPD): No Smoking: No Smoking Exposure: No Stomache/Intestinal Problems Hepatitis: No Genital/Urinary Problems Renal Disease: No Reproductive Problems Previous Pregnancies: Yes Musculoskeletal Problems Arthritis: Yes Endocrine Problems Diabetes Mellitus Type 1: No Diabetes Mellitus Type 2: No Hypothyroidism: Yes Other Problems Hospitalization: No Shingles: No Blood Transfusions: No Anesthesia Reactions: No Cancer: No Subjective Visit Visit for: follow up visit and knee Immunization / Flu Flu Vaccine in the Last 12 Months: No Flu Vaccine Exclusion Criteria: No Exclusion Criteria History of Present Illness Chief complaint: Right knee pain Patient is doing well status post right total knee replacement. She has minimal pain. She was in a knee immobilizer and we removed it today. She is doing well with a walker Pain Pain level (0-10): 0 Ambulatory data Ambulatory device: walker Treatments Improvement with previous injections: No Improvement with PT: No Improvement with NSAIDS: no Review of Systems Review of Systems: All systems negative unless otherwise noted in HPI.
[2024-07-07 09:57] VITALS: BP 114/76; PULSE 92; RESP 18; TEMP 36.1; O2SAT 98; BMI 24.8
== END 2024-07-07 10:10 | disposition home or self-care (01) ==
LOC: HODSRG 09:40
PROVIDERS: PCP Physician Assistant Medical; Referring Provider Physician Assistant Medical; Supervising Provider Orthopaedic Surgery Adult Reconstructive Orthopaedic Surgery; Visit Provider Orthopaedic Surgery Adult Reconstructive Orthopaedic Surgery
DX: M06.861 Other specified rheumatoid arthritis, right knee (principal); M25.561 Pain in right knee; Z96.651 Presence of right artificial knee joint; I10 Essential (primary) hypertension; E78.00 Pure hypercholesterolemia, unspecified
CPT/HCPCS: 99214; G0463

== ENCOUNTER → 2024-07-31 | Outpatient (CLI) | payer MEDICARE, SELFPAY ==
--- NOTE | 2024-07-31 13:37 | XR_ITS ---
Examination: Right knee 4 views TECHNIQUE: AP oblique lateral axial right knee 4 views Exam date and time: July 31, 2024 1358 hours INDICATIONS: Knee replacement 6 months ago FINDINGS: Total right knee replacement Satisfactory alignment No patellar dislocation IMPRESSION: Total right knee replacement with satisfactory alignment
== END | disposition home or self-care (01) ==
PROVIDERS: PCP Family Medicine; Referring Provider Orthopaedic Surgery Adult Reconstructive Orthopaedic Surgery; Visit Provider Orthopaedic Surgery Adult Reconstructive Orthopaedic Surgery
DX: M17.11 Unilateral primary osteoarthritis, right knee (principal); Z96.651 Presence of right artificial knee joint
CPT/HCPCS: 73564

== ENCOUNTER 2024-08-04 09:56 | Outpatient (AMB) | payer MEDICARE, SELFPAY ==
[2024-08-04 10:27] VITALS: BP 108/73; PULSE 82; RESP 18; TEMP 36.5; O2SAT 98; BMI 24.5
--- NOTE | 2024-08-04 10:27 | PD.ORTHCLVIS ---
Vital signs 08/04/24 10:27 Height 1.55 m Height Method Stated Weight 59.109 kg Weight Measurement Method Standing Scale BMI 24.5 BP 108/73 Blood Pressure Source Automatic Cuff Blood Pressure Location Right Upper Arm Position Sitting Respiration 18 Pulse 82 Pulse Source Monitor Temp 97.7 F Temp Source Temporal Artery Scan Pulse Oximetry (%) 98 Oxygen Delivery Method Room Air Med/Allergies Allergies & Medications Allergies No Known Allergies Allergy (Verified 08/04/24 10:28) Medication Reconciliation atorvastatin 20 mg tablet 20 mg PO QPM 06/16/24 [History Confirmed 08/04/24] celecoxib 200 mg capsule 200 mg PO BID 06/16/24 [History Confirmed 08/04/24] cholecalciferol (vitamin D3) 50 mcg (2,000 unit) tablet (Vitamin D3) 50 mcg PO QDAY 06/16/24 [History Confirmed 08/04/24] levothyroxine 50 mcg capsule 50 mcg PO QDAY 06/16/24 [History Confirmed 08/04/24] lisinopril 20 mg tablet 20 mg PO QDAY 06/16/24 [History Confirmed 08/04/24] terbinafine HCl 250 mg tablet 250 mg PO QDAY 06/16/24 [History Confirmed 08/04/24] acetaminophen 500 mg tablet (Acetaminophen Extra Strength) 1,000 mg (2 x 500 mg) PO Q6H PRN pain #90 tabs 06/19/24 [Rx Confirmed 08/04/24] aspirin 81 mg tablet,delayed release 81 mg PO BID #60 tabs 06/19/24 [Rx Confirmed 08/04/24] doxycycline hyclate 100 mg tablet 100 mg PO BID #14 tabs 06/19/24 [Rx Confirmed 08/04/24] gabapentin 300 mg capsule 300 mg PO .qhs #30 caps 06/19/24 [Rx Confirmed 08/04/24] sennosides 8.6 mg-docusate sodium 50 mg tablet (Senna-S) 1 tab-cap PO QDAY #30 tabs 06/19/24 [Rx Confirmed 08/04/24] oxycodone 5 mg tablet 5 mg PO Q6H PRN pain #28 tabs 07/03/24 [Rx Confirmed 08/04/24] acetaminophen 500 mg tablet 1,000 mg (2 x 500 mg) PO q6hr PRN pain #100 tabs 08/04/24 [Rx] oxycodone 5 mg tablet 5 mg PO Q6HR PRN pain 7 days #28 tabs 08/04/24 [Rx] Exam Exam Patient is in no acute distress and is cooperative with the examination today. Breathing is nonlabored. Patient has a normal mood and affect. Bilateral extremities were evaluated and demonstrates sensation intact to light touch. Palpable pedal pulses are present. No significant edema is present. Bilateral hips were examined. The patient has no pain with log roll of the hips. Internal rotation to 30 degrees and external rotation to 30 degrees is painless. Negative FADIR. Left knee was examined today. The left knee is in reasonable alignment. Range of motion from 0-120 degrees. Knee is stable to varus and valgus as well as AP translation with <5mm. Patient has a negative McMurrays. There is no pain with patellofemoral compression and no crepitus noted. The knee is nontender to palpation. Right knee incisions clean and dry and intact Range of motion is 0 to 100 degrees Right total knee replacement is good alignment position. It Is a semiconstrained knee Assessment and Plan Problem List (1) Rheumatoid arthritis: Status: Acute Plan: Patient is a 78-year-old female with right knee pain and right knee rheumatoid arthritis. She is status post right total knee replacement and is doing well. She has mild pain. We remove the knee immobilizer today. We discussed that intraoperatively she had very soft bone. We did use a semiconstrained liner. The patient is doing well. We will see her in 6 weeks Advanced Care Planning Discussion Advance care planning discussed with:: patient Office Procedures GNS Level of Care Nursing/Assessment Patient Status: Established Patient Nursing Assessment/Reassesment: Medication Reconciliation, Update PMH in EMR and Vital Signs Coordination of Care: Complex Care and Chronic Disease 1-5, Education Complex Pt/Fam, Consent,records obtained, informed consent, Results/Orders obtained and Staff clarify orders Established Patient Charge Established Patient Point Assignment: 95 Established Patient Point Charge: EP Level 3 (80-115) MA Intake Visit Data Collection New Patient or Established: Established Patient (seen at [facility] within 3 years) Reason for Visit:: 6 WK POST OP RT TKA Seen by Clinical Staff ONLY (RN/MA): No Verbal consent obtained for Telemed visit?: No Animal Care Assistant Required: Yes PCP or OBGYN visit in last 3 months: Yes Hx Now: No Do You Feel Safe at Home: Yes Authorities Contacted: N/A Questionairres Past Medical History Past Medical History Have you ever been diagnosed with any of the following: Neurological Problems Seizures: No Cardiology Problems Hypercholesterolemia: Yes Congestive Heart Failure: No Hypertension: Yes Respiratory Problems Chronic Obstructive Pulmonary Disease (COPD): No Smoking: No Smoking Exposure: No Stomache/Intestinal Problems Hepatitis: No Genital/Urinary Problems Renal Disease: No Reproductive Problems Previous Pregnancies: Yes Musculoskeletal Problems Arthritis: Yes Endocrine Problems Diabetes Mellitus Type 1: No Diabetes Mellitus Type 2: No Hypothyroidism: Yes Other Problems Hospitalization: No Shingles: No Blood Transfusions: No Anesthesia Reactions: No Cancer: No Subjective Visit Visit for: post op #2 and knee Immunization / Flu Flu Vaccine in the Last 12 Months: No Flu Vaccine Exclusion Criteria: No Exclusion Criteria History of Present Illness Chief complaint: 6 WK POST OP RT TKA Patient is 6 weeks out from a right total knee replacement. She is doing well. SHe is very happy with her progress Personal History Occupation: RETIRED Red flag PMH: none Pain Pain level (0-10): 8 Pain duration: ALL DAY Pain location: inside (medial), outside (lateral) and anterior Pain quality: dull and aching Ambulatory data Ambulatory device: walker Treatments Improvement with previous injections: No Improvement with PT: No Improvement with NSAIDS: no Review of Systems Review of Systems: All systems negative unless otherwise noted in HPI.
== END 2024-08-04 10:44 | disposition home or self-care (01) ==
LOC: HODSRG 09:56
PROVIDERS: PCP Family Medicine; Referring Provider Family Medicine; Supervising Provider Orthopaedic Surgery Adult Reconstructive Orthopaedic Surgery; Visit Provider Orthopaedic Surgery Adult Reconstructive Orthopaedic Surgery
DX: M06.861 Other specified rheumatoid arthritis, right knee (principal); M25.561 Pain in right knee; Z96.651 Presence of right artificial knee joint; I10 Essential (primary) hypertension; E78.00 Pure hypercholesterolemia, unspecified
CPT/HCPCS: 99213; G0463

== ENCOUNTER 2024-09-07 11:00 | Outpatient (RCR) | payer MEDICARE, MEDICAID, SELFPAY ==
--- NOTE | 2024-08-14 12:55 | PTNOTE_ITS ---
PT OP Initial Eval Patient Information Outpatient Physical Therapy Treatment Date: 08/14/24 Visit Reasons: RT TKA Medical Diagnosis: Right Knee OA Treatment Dx #1: Right Knee Mobility Deficits Treatment Dx #2: Right Knee Weakness Start of Care: 08/14/24 Date of Onset: 06/19/24 Smoking Status Smoking Status: Never smoker Initial Assessment Subjective: Pt is a 78 y/o female s/p right TKA 06/19/24 due to knee OA. Pt still has a lot of knee pain (7/10) with activities. Pt has limitation with standing, walking, chores, self care, cleaning, showering, stairs, and performing recreational activities. Objective: Right Knee AROM: -16 deg to 80 deg Right Knee MMTs: grossly 3/5 Right Hip MMTs: grossly 3/5 SLS: NT Assessment: Pt demonstrate right knee mobility and strength deficits s/p TKA leading to difficulty with ADLs. Pt will benefit from physical therapy to increase ROM, strenght, and work on ambulation. Short Term and Penitentiary Goals 1) Decrease knee extension lag to -8 deg in 12 wks to have a normal gait pattern 2) Increase right knee flexion AROM to 115 deg in 12 wks to be able to perform squatting activities 3) Decrease knee pain to 2/10 in 12 wks to be able to perform recreational activities 4) Increase SLS to 10 sec in 12 wks to be able to perform self care activities 5) Indep with HEP Treatment Plan 1) Manual Therapy 2) Therapeutic Activities 3) Therapeutic Exercises 4) Modalities (ice, heat) 5) Balance Training 6) Gait Training Frequency and Duration: 2 x wk for 12 wks Certification Dates: 08/14/24 to 11/11/24 Procedure Charges OP PT Eval Mod Complex 30 minutes: Yes
--- NOTE | 2024-08-17 11:49 | PT.ODAYNRPT ---
PT Outpatient Daily Note OP Daily Note Outpatient Physical Therapy Treatment Date: 08/17/24 Visit Reasons: RT TKA Subjective: Pt brought in by granddaughter. As per pt granddaughter pt uses FWW for community distance but family has been trying to wean her off because pt has heavy use of hands with FWW, not loading the R LE. Objective: Please see flow sheet for ther ex list. Assessment: Pt is guarded and c/o pain and tenderness during MT. Pt and pt granddaughter instructed on HEP and encouraged to perform every other day. Plan: Continue with poC. Length of Time (minutes) of Treatment: 30 Minutes RESIDENCE SUPERVISOR Service Modifier Method I: Divide the number of min of care provided by the RESIDENCE SUPERVISOR/TING by the total min of care provided then multiply by 100. If greater than 11 percent modifier is required. Method II: Divide the total time of care provided to patient by 10 (round to the nearest whole number) and add 1 min. to set the minimum time requirement. If treatment total was 60 min., then 10% of 6 min PT CQ modifier applied: CQ Modifier applied Procedure Charges Therapeutic Exercise 30 minutes: Yes
--- NOTE | 2024-08-21 13:52 | PT.ODAYNRPT ---
PT Outpatient Daily Note OP Daily Note Outpatient Physical Therapy Treatment Date: 08/21/24 Visit Reasons: RT TKA Subjective: Pt reports R knee is stiff and painful. As per pt she has been performing HEP, pt was brought in by a different family member today. Objective: Please see flow sheet for ther ex list. Assessment: Pt continues to present with knee extension lag during SLR. Pt encouraged to continue with HEP to maximize rehab potential. Plan: Assess response to treatment. HOMEMAKING REHABILITATION CONSULTANT Service Modifier Method I: Divide the number of min of care provided by the HOMEMAKING REHABILITATION CONSULTANT/TING by the total min of care provided then multiply by 100. If greater than 11 percent modifier is required. Method II: Divide the total time of care provided to patient by 10 (round to the nearest whole number) and add 1 min. to set the minimum time requirement. If treatment total was 60 min., then 10% of 6 min PT CQ modifier applied: CQ Modifier applied
--- NOTE | 2024-08-29 12:57 | PT.ODAYNRPT ---
PT Outpatient Daily Note OP Daily Note Outpatient Physical Therapy Treatment Date: 08/29/24 Visit Reasons: RT TKA Subjective: Pt reports R knee is painful, stiff and swollen. Pt brought in by family members, as per pt family they take turns for a week to care for pt for a week and they they switch. Objective: Please see flow sheet for ther ex list. Assessment: Pt guarded and gets emotional during PROM, pt encouraged to continue with HEP. Plan: Continue with POC. Length of Time (minutes) of Treatment: 30 Minutes INSPECTOR MECHANICAL Service Modifier Method I: Divide the number of min of care provided by the INSPECTOR MECHANICAL/BOLTING MACHINE OPERATOR by the total min of care provided then multiply by 100. If greater than 11 percent modifier is required. Method II: Divide the total time of care provided to patient by 10 (round to the nearest whole number) and add 1 min. to set the minimum time requirement. If treatment total was 60 min., then 10% of 6 min PT CQ modifier applied: CQ Modifier applied Procedure Charges Therapeutic Exercise 30 minutes: Yes
--- NOTE | 2024-08-31 11:29 | PTNOTE_ITS ---
PT Outpatient Daily Note OP Daily Note Outpatient Physical Therapy Treatment Date: 08/31/24 Visit Reasons: RT TKA Subjective: Pt reports R knee movement is slow to progress, as per pt she continues to be compliant with HEP. Objective: Please see flow sheet for ther ex list. Assessment: High focus on restoring knee ROM, interventions completed within pt tolerance. Plan: Continue with POC. Length of Time (minutes) of Treatment: 30 Minutes MANAGER CORPORATE STRATEGY Service Modifier Method I: Divide the number of min of care provided by the MANAGER CORPORATE STRATEGY/RECEIVABLE EXECUTIVE by the total min of care provided then multiply by 100. If greater than 11 percent modifier is required. Method II: Divide the total time of care provided to patient by 10 (round to the nearest whole number) and add 1 min. to set the minimum time requirement. If treatment total was 60 min., then 10% of 6 min PT CQ modifier applied: CQ Modifier applied Procedure Charges Therapeutic Exercise 30 minutes: Yes
--- NOTE | 2024-09-05 11:42 | PTNOTE_ITS ---
PT Outpatient Daily Note OP Daily Note Outpatient Physical Therapy Treatment Date: 09/05/24 Visit Reasons: RT TKA Subjective: As per pt she is performing HEP, pt takes turn every week staying with different family member. Objective: Please see flow sheet for ther ex list. Assessment: Pt guareded during PROM, pt educated about the importance of being compliant with HEP and working on knee ROM in clinic. Plan: Continue with POC. Length of Time (minutes) of Treatment: 30 Minutes MEDICAL ADMINISTRATIVE SPECIALIST Service Modifier Method I: Divide the number of min of care provided by the MEDICAL ADMINISTRATIVE SPECIALIST/NECKTIE CENTRALIZING MACHINE OPERATOR by the total min of care provided then multiply by 100. If greater than 11 percent modifier is required. Method II: Divide the total time of care provided to patient by 10 (round to the nearest whole number) and add 1 min. to set the minimum time requirement. If treatment total was 60 min., then 10% of 6 min PT CQ modifier applied: CQ Modifier applied Procedure Charges Therapeutic Exercise 30 minutes: Yes
--- NOTE | 2024-09-07 12:55 | PT.ODAYNRPT ---
PT Outpatient Daily Note OP Daily Note Outpatient Physical Therapy Treatment Date: 09/07/24 Visit Reasons: RT TKA Subjective: Pt's knee is better. Pt still has stiffness with walking Objective: Right Knee Flexion AROM: 100 deg Assessment: progressing with knee flexion AROM. Pt had difficulty tolerating knee extension stretch with heel prop. Plan: Continue with PT Length of Time (minutes) of Treatment: 30 Minutes Procedure Charges Therapeutic Exercise 30 minutes: Yes
== END 2024-09-08 23:59 | disposition home or self-care (01) ==
LOC: CPTX 11:00
PROVIDERS: PCP Orthopaedic Surgery Adult Reconstructive Orthopaedic Surgery; Referring Provider Orthopaedic Surgery Adult Reconstructive Orthopaedic Surgery; Visit Provider Orthopaedic Surgery Adult Reconstructive Orthopaedic Surgery
DX: M25.561 Pain in right knee (principal); R53.1 Weakness; Z96.651 Presence of right artificial knee joint; R26.2 Difficulty in walking, not elsewhere classified
CPT/HCPCS: 97110; 97162

== ENCOUNTER 2024-09-15 09:23 | Outpatient (AMB) | payer MEDICARE, SELFPAY ==
--- NOTE | 2024-09-15 09:42 | PD.ORTHCLVIS ---
Vital signs 09/15/24 09:47 Height 1.55 m Height Method Stated Weight 60.81 kg Weight Measurement Method Standing Scale BMI 25.3 BP 108/61 Blood Pressure Source Automatic Cuff Blood Pressure Location Left Upper Arm Position Sitting Respiration 18 Pulse 113 H Pulse Source Monitor Temp 98.1 F Temp Source Temporal Artery Scan Pulse Oximetry (%) 97 Oxygen Delivery Method Room Air Med/Allergies Allergies & Medications Allergies No Known Allergies Allergy (Verified 09/15/24 09:48) Medication Reconciliation atorvastatin 20 mg tablet 20 mg PO QPM 06/16/24 [History Confirmed 09/15/24] celecoxib 200 mg capsule 200 mg PO BID 06/16/24 [History Confirmed 09/15/24] cholecalciferol (vitamin D3) 50 mcg (2,000 unit) tablet (Vitamin D3) 50 mcg PO QDAY 06/16/24 [History Confirmed 09/15/24] levothyroxine 50 mcg capsule 50 mcg PO QDAY 06/16/24 [History Confirmed 09/15/24] lisinopril 20 mg tablet 20 mg PO QDAY 06/16/24 [History Confirmed 09/15/24] terbinafine HCl 250 mg tablet 250 mg PO QDAY 06/16/24 [History Confirmed 09/15/24] acetaminophen 500 mg tablet (Acetaminophen Extra Strength) 1,000 mg (2 x 500 mg) PO Q6H PRN pain #90 tabs 06/19/24 [Rx Confirmed 09/15/24] aspirin 81 mg tablet,delayed release 81 mg PO BID #60 tabs 06/19/24 [Rx Confirmed 09/15/24] doxycycline hyclate 100 mg tablet 100 mg PO BID #14 tabs 06/19/24 [Rx Confirmed 09/15/24] gabapentin 300 mg capsule 300 mg PO .qhs #30 caps 06/19/24 [Rx Confirmed 09/15/24] sennosides 8.6 mg-docusate sodium 50 mg tablet (Senna-S) 1 tab-cap PO QDAY #30 tabs 06/19/24 [Rx Confirmed 09/15/24] oxycodone 5 mg tablet 5 mg PO Q6H PRN pain #28 tabs 07/03/24 [Rx Confirmed 09/15/24] acetaminophen 500 mg tablet 1,000 mg (2 x 500 mg) PO q6hr PRN pain #100 tabs 08/04/24 [Rx Confirmed 09/15/24] Exam Exam Patient is in no acute distress and is cooperative with the examination today. Breathing is nonlabored. Patient has a normal mood and affect. Bilateral extremities were evaluated and demonstrates sensation intact to light touch. Palpable pedal pulses are present. No significant edema is present. Bilateral hips were examined. The patient has no pain with log roll of the hips. Internal rotation to 30 degrees and external rotation to 30 degrees is painless. Negative FADIR. Left knee was examined today. The left knee is in reasonable alignment. Range of motion from 0-120 degrees. Knee is stable to varus and valgus as well as AP translation with <5mm. Patient has a negative McMurrays. There is no pain with patellofemoral compression and no crepitus noted. The knee is nontender to palpation. Right knee incisions clean and dry and intact Range of motion is 0 to 100 degrees Right total knee replacement is good alignment position. It Is a semiconstrained knee Assessment and Plan Problem List (1) Rheumatoid arthritis: Status: Acute Plan: Patient is a 78-year-old female with right knee pain and right knee rheumatoid arthritis. She is status post right total knee replacement and is doing well. She has mild pain. Patient has great range of motion and is walking with no assistive device Advanced Care Planning Discussion Advance care planning discussed with:: patient Office Procedures GNS Level of Care Nursing/Assessment Patient Status: Established Patient Nursing Assessment/Reassesment: Medication Reconciliation, Update PMH in EMR and Vital Signs Coordination of Care: Complex Care and Chronic Disease 1-5, Education Complex Pt/Fam, Consent,records obtained, informed consent, Results/Orders obtained and Staff clarify orders Established Patient Charge Established Patient Point Assignment: 95 Established Patient Point Charge: EP Level 3 (80-115) MA Intake Visit Data Collection New Patient or Established: Established Patient (seen at [facility] within 3 years) Reason for Visit:: R TKA 6 WEEK F/U Seen by Clinical Staff ONLY (RN/MA): No Laser Technician Required: No PCP or OBGYN visit in last 3 months: Yes Hx Now: No Do You Feel Safe at Home: Yes Authorities Contacted: N/A Questionairres Past Medical History Past Medical History Have you ever been diagnosed with any of the following: Neurological Problems Seizures: No Cardiology Problems Hypercholesterolemia: Yes Congestive Heart Failure: No Hypertension: Yes Respiratory Problems Chronic Obstructive Pulmonary Disease (COPD): No Smoking: No Smoking Exposure: No Stomache/Intestinal Problems Hepatitis: No Genital/Urinary Problems Renal Disease: No Reproductive Problems Previous Pregnancies: Yes Musculoskeletal Problems Arthritis: Yes Endocrine Problems Diabetes Mellitus Type 1: No Diabetes Mellitus Type 2: No Hypothyroidism: Yes Other Problems Hospitalization: No Shingles: No Blood Transfusions: No Anesthesia Reactions: No Cancer: No Subjective Visit Visit for: follow up visit and knee (RIGHT) Immunization / Flu Flu Vaccine in the Last 12 Months: No Flu Vaccine Exclusion Criteria: No Exclusion Criteria History of Present Illness Chief complaint: Right total knee replacement Console is a pleasant 79-year-old female with right knee pain status post right total knee replacement. The pain is specifically improved. She is 3 months out from surgery. She is significant valgus deformity we corrected it. She is happy with her pain relief. Pain Pain level (0-10): 0 Ambulatory data Ambulatory device: none Treatments Improvement with previous injections: No Improvement with PT: No Improvement with NSAIDS: no Review of Systems Review of Systems: All systems negative unless otherwise noted in HPI.
[2024-09-15 09:47] VITALS: BP 108/61; PULSE 113; RESP 18; TEMP 36.7; O2SAT 97; BMI 25.3
== END 2024-09-15 09:54 | disposition home or self-care (01) ==
PROVIDERS: PCP Family Medicine; Referring Provider Family Medicine; Supervising Provider Orthopaedic Surgery Adult Reconstructive Orthopaedic Surgery; Visit Provider Orthopaedic Surgery Adult Reconstructive Orthopaedic Surgery
DX: M06.9 Rheumatoid arthritis, unspecified (principal); Z96.651 Presence of right artificial knee joint
CPT/HCPCS: 99213; G0463

== ENCOUNTER 2024-10-05 11:00 | Outpatient (RCR) | payer MEDICARE, SELFPAY ==
--- NOTE | 2024-09-26 11:23 | PT.ODAYNRPT ---
PT Outpatient Daily Note OP Daily Note Outpatient Physical Therapy Treatment Date: 09/26/24 Visit Reasons: knee surgery Subjective: Pt reports knee is doing ok, still feels stiff and tender to touch. Pt daughter mention she was under the care of another daughter last week and that is why she missed two appointments. Pt mentioned she had follow up with surgeon and he siad everything looks good with current progress. Objective: Please see flow sheet for ther ex list. Assessment: Pt guarded during PROM and AAROM interventions can reach ~90 deg of knee flexion. Plan: Continue with pOC. Length of Time (minutes) of Treatment: 30 Minutes Procedure Charges Therapeutic Exercise 30 minutes: Yes
--- NOTE | 2024-09-28 13:08 | PT.ODAYNRPT ---
PT Outpatient Daily Note OP Daily Note Outpatient Physical Therapy Treatment Date: 09/28/24 Visit Reasons: knee surgery Subjective: Pt reports knee is doing ok, was having really bad pain yesterday. Objective: Please see flow sheet for ther ex list. Assessment: Pt continues to ambulate with antalgic gait, poor heel strike and poor knee extension during stance phase. Plan: Continue with POC. Length of Time (minutes) of Treatment: 30 Minutes GEOPHYSICAL ENGINEER Service Modifier Method I: Divide the number of min of care provided by the GEOPHYSICAL ENGINEER/TING by the total min of care provided then multiply by 100. If greater than 11 percent modifier is required. Method II: Divide the total time of care provided to patient by 10 (round to the nearest whole number) and add 1 min. to set the minimum time requirement. If treatment total was 60 min., then 10% of 6 min PT CQ modifier applied: CQ Modifier applied Procedure Charges Therapeutic Exercise 30 minutes: Yes
--- NOTE | 2024-10-03 11:54 | PT.ODS1RPT ---
PT OP Progress/Discharge Note Date of Service: 10/03/24 Progress Note/DC Note Progress Note/Discharge Note: Progress Note Patient Information Visit Reasons: knee surgery Medical Diagnosis: Right Knee OA Treatment Dx #1: Right Knee Mobility Deficits Service Continue Service or Discharge: Continue Service Certification Date Certification Dates: 10/03/24 to 01/03/25 Status Subjective: Pt recently seen surgeon and satisfy with her progress so far. Pt has been able to stand, walk, and perform light ADLs with less limitation. According to daughter Pt still has difficulty adjusting to the knee with certain ADLs, prolonged walking, and performing recreational activities. Pt has 3 steps to get inside the house, however, has limitation due to fear of falling and poor negotiation. Pt will like to work on increasing knee ROM, strength, and balance. Objective: Right Knee AROM: -12 deg to 91 deg Right Knee PROM: -10 deg to 95 deg Right Knee MMTs: grossly 4-/5 Right Hip MMTs: grossly 3+/5 SLS: 2 sec Assessment: Pt demonstrate slow progress with knee ROM due to poor tolerance to passive stretching due to fear avoidance of pain. Pt's gait has improved the last few weeks, however, continues to require cues from therapist to increase knee flexion with preswing leading to decrease stride and inconsistent gait electronic integrated systems mechanic. Pt has not met set goals and will continue to benefit from physical therapy to increase ROM, strength, and work on ambulation. Plan: Continue with PT/POC and add 8 sessions (2 x wk for 4 wks) Procedure Charges Therapeutic Exercise 30 minutes: Yes
--- NOTE | 2024-10-05 11:44 | PT.ODAYNRPT ---
PT Outpatient Daily Note OP Daily Note Outpatient Physical Therapy Treatment Date: 10/05/24 Visit Reasons: knee surgery Subjective: Pt's knee feels like it's getting a little better. According to daughter in law patient's knee been more swollen after physical therapy. Pt has been using ice at home to help with the swelling. Objective: Right Knee flexion AROM: 97 deg Assessment: slow progress with knee flexion AROM. able to tolerate passive stretching with less guarding today. Plan: Continue with PT Length of Time (minutes) of Treatment: 30 Minutes Procedure Charges Therapeutic Exercise 30 minutes: Yes
== END 2024-10-09 23:59 | disposition home or self-care (01) ==
LOC: CPTX 11:00
PROVIDERS: PCP Orthopaedic Surgery Adult Reconstructive Orthopaedic Surgery; Referring Provider Orthopaedic Surgery Adult Reconstructive Orthopaedic Surgery; Visit Provider Orthopaedic Surgery Adult Reconstructive Orthopaedic Surgery
DX: M25.561 Pain in right knee (principal); R53.1 Weakness; R26.2 Difficulty in walking, not elsewhere classified; Z96.651 Presence of right artificial knee joint; M17.11 Unilateral primary osteoarthritis, right knee
CPT/HCPCS: 97110

== ENCOUNTER 2024-10-19 09:30 | Outpatient (RCR) | payer MEDICARE, SELFPAY ==
--- NOTE | 2024-10-10 11:37 | PT.ODAYNRPT ---
PT Outpatient Daily Note OP Daily Note Outpatient Physical Therapy Treatment Date: 10/10/24 Visit Reasons: Knee surgery Subjective: Pt's knee is doing okay. Pt reports of less swelling around the knee. Objective: Please see flow chart for list of ther ex performed Assessment: encouraged patient to increase stretching in knee flexion to be able to progress with knee flexion AROM, however, unable due to pain impede progression Plan: Continue with PT Length of Time (minutes) of Treatment: 30 Minutes Procedure Charges Therapeutic Exercise 30 minutes: Yes
--- NOTE | 2024-10-12 11:21 | PT.ODAYNRPT ---
PT Outpatient Daily Note OP Daily Note Outpatient Physical Therapy Treatment Date: 10/12/24 Visit Reasons: Knee surgery Subjective: Pt's knee still swollen after therapy session. Pt mentioned she is trusting the knee more and using less her walker around the house lately. Objective: Please see flow chart for list of ther ex performed Assessment: improved tolerance to passive knee flexion stretch. Pt is less guarded allowing therapist to increase stretching intensity. Plan: Continue with PT Length of Time (minutes) of Treatment: 30 Minutes Procedure Charges Therapeutic Exercise 30 minutes: Yes
--- NOTE | 2024-10-17 12:08 | PT.ODAYNRPT ---
PT Outpatient Daily Note OP Daily Note Outpatient Physical Therapy Treatment Date: 10/17/24 Visit Reasons: Knee surgery Subjective: Pt's knee feels better. Pt does not have any concerns to report. Objective: Please see flow chart for list of ther ex performed Assessment: practice gait training in PB using left hand as SEBASTIAN. Cues to increase push off and bend knee in swing phase Plan: Continue with PT Length of Time (minutes) of Treatment: 30 Minutes Procedure Charges Therapeutic Exercise 30 minutes: Yes
--- NOTE | 2024-10-19 09:49 | PT.ODS1RPT ---
PT OP Progress/Discharge Note Date of Service: 10/19/24 Progress Note/DC Note Progress Note/Discharge Note: Progress Note Patient Information Visit Reasons: Knee surgery Medical Diagnosis: Right Knee OA Treatment Dx #1: Right Knee Pain Treatment Dx #2: Right Knee Weakness Service Continue Service or Discharge: Continue Service Certification Date Certification Dates: 10/19/24 to 01/18/25 Status Subjective: Pt's knee is stiff and ache. Pt has been able to walk around the house more without her walker. Pt mentioned standing, self care, balance, and stairs are getting easier. Pt still has limitation with squatting, prolonged walking, and performing recreational activities. Objective: Right Knee AROM: -13 deg to 95 deg Right Knee MMTs: grossly 3+/5 Right Hip MMTs: grossly 3+/5 SLS: 2 sec Assessment: Pt is slowly improving with knee AROM and strength; patient slow progress relates to inconsistent attendance due to transportation. Pt has been able to start performing light ADLs, ambulation, standing, and chores with less limitation. Pt has not met set goals and will continue to benefit from physical therapy to work on ROM and strength; thank you for your referrals. Plan: Continue with PT/POC and add 8 sessions (2 x wk for 4 wks) Procedure Charges Therapeutic Exercise 15 minutes: Yes Manual Professor Of Exercise Science 15 minutes: Yes
== END 2024-11-08 23:59 | disposition home or self-care (01) ==
LOC: CPTX 09:30
PROVIDERS: PCP Orthopaedic Surgery Adult Reconstructive Orthopaedic Surgery; Referring Provider Orthopaedic Surgery Adult Reconstructive Orthopaedic Surgery; Visit Provider Orthopaedic Surgery Adult Reconstructive Orthopaedic Surgery
DX: M25.561 Pain in right knee (principal); R53.1 Weakness; M25.661 Stiffness of right knee, not elsewhere classified; R26.2 Difficulty in walking, not elsewhere classified; Z96.651 Presence of right artificial knee joint
CPT/HCPCS: 97110; 97140

== ENCOUNTER 2024-12-19 11:14 | Outpatient (AMB) | payer MEDICARE, SELFPAY ==
[2024-12-19 11:23] VITALS: BP 131/76; PULSE 79; RESP 16; TEMP 36.8; O2SAT 98; BMI 26.6
--- NOTE | 2024-12-19 11:23 | XR_ITS ---
Examination: Bilateral knees single view Right lateral knee left lateral knee 2 views Right axial knee left axial knee 2 views TECHNIQUE: Bilateral AP knees standing single view, single view Standing right lateral knee left lateral knee 2 views Right axial knee left axial knee 2 views total 5 views Date and time: December 19, 2024 1145 hours INDICATIONS: Postop right knee replacement July 31, 2024 with persistent right knee pain. FINDINGS: Moderate osteopenia Total right knee arthroplasty. Satisfactory alignment. No loosening of the prosthetic components. No fracture. Advanced narrowing [id number] lateral joint space left knee Significant osteoarthritis left patellofemoral joint No fractures IMPRESSION: Total right knee arthroplasty with satisfactory alignment Advanced narrowing [id number] lateral joint space left knee Significant osteoarthritis left patellofemoral joint
--- NOTE | 2024-12-19 11:23 | PD.ORTHCLVIS ---
Vital signs 12/19/24 11:23 Height 1.55 m Height Method Stated Weight 64.07 kg Weight Measurement Method Standing Scale BMI 26.6 BP 131/76 H Blood Pressure Source Automatic Cuff Blood Pressure Location Left Upper Arm Position Sitting Respiration 16 Pulse 79 Pulse Source Monitor Temp 98.3 F Temp Source Temporal Artery Scan Pulse Oximetry (%) 98 Oxygen Delivery Method Room Air Med/Allergies Allergies & Medications Allergies No Known Allergies Allergy (Verified 12/19/24 11:24) Medication Reconciliation atorvastatin 20 mg tablet 20 mg PO QPM 06/16/24 [History Confirmed 12/19/24] celecoxib 200 mg capsule 200 mg PO BID 06/16/24 [History Confirmed 12/19/24] cholecalciferol (vitamin D3) 50 mcg (2,000 unit) tablet (Vitamin D3) 50 mcg PO QDAY 06/16/24 [History Confirmed 12/19/24] levothyroxine 50 mcg capsule 50 mcg PO QDAY 06/16/24 [History Confirmed 12/19/24] lisinopril 20 mg tablet 20 mg PO QDAY 06/16/24 [History Confirmed 12/19/24] terbinafine HCl 250 mg tablet 250 mg PO QDAY 06/16/24 [History Confirmed 12/19/24] acetaminophen 500 mg tablet (Acetaminophen Extra Strength) 1,000 mg (2 x 500 mg) PO Q6H PRN pain #90 tabs 06/19/24 [Rx Confirmed 12/19/24] aspirin 81 mg tablet,delayed release 81 mg PO BID #60 tabs 06/19/24 [Rx Confirmed 12/19/24] doxycycline hyclate 100 mg tablet 100 mg PO BID #14 tabs 06/19/24 [Rx Confirmed 12/19/24] gabapentin 300 mg capsule 300 mg PO .qhs #30 caps 06/19/24 [Rx Confirmed 12/19/24] sennosides 8.6 mg-docusate sodium 50 mg tablet (Senna-S) 1 tab-cap PO QDAY #30 tabs 06/19/24 [Rx Confirmed 12/19/24] oxycodone 5 mg tablet 5 mg PO Q6H PRN pain #28 tabs 07/03/24 [Rx Confirmed 12/19/24] acetaminophen 500 mg tablet 1,000 mg (2 x 500 mg) PO q6hr PRN pain #100 tabs 08/04/24 [Rx Confirmed 12/19/24] Exam Exam Patient is in no acute distress and is cooperative with the examination today. Breathing is nonlabored. Patient has a normal mood and affect. Bilateral extremities were evaluated and demonstrates sensation intact to light touch. Palpable pedal pulses are present. No significant edema is present. Bilateral hips were examined. The patient has no pain with log roll of the hips. Internal rotation to 30 degrees and external rotation to 30 degrees is painless. Negative FADIR. Left knee was examined today. The left knee is in reasonable alignment. Range of motion from 0-120 degrees. Knee is stable to varus and valgus as well as AP translation with <5mm. Patient has a negative McMurrays. There is no pain with patellofemoral compression and no crepitus noted. The knee is nontender to palpation. Right knee incisions clean and dry and intact Range of motion is 0 to 100 degrees Right total knee replacement is good alignment position. It Is a semiconstrained knee Assessment and Plan Problem List (1) Rheumatoid arthritis: Status: Acute Plan: Patient is a 78-year-old female with right knee pain and right knee rheumatoid arthritis. She is status post right total knee replacement and is doing well. She has mild pain. Patient has great range of motion and is walking with no assistive device Advanced Care Planning Discussion Advance care planning discussed with:: patient Office Procedures GNS Level of Care Nursing/Assessment Patient Status: Established Patient Nursing Assessment/Reassesment: Medication Reconciliation, Update PMH in EMR and Vital Signs Coordination of Care: Complex Care and Chronic Disease 1-5, Education Complex Pt/Fam, Consent,records obtained, informed consent, Results/Orders obtained and Staff clarify orders Established Patient Charge Established Patient Point Assignment: 95 Established Patient Point Charge: EP Level 3 (80-115) MA Intake Visit Data Collection New Patient or Established: Established Patient (seen at [facility] within 3 years) Reason for Visit:: FU RT KNEE TKA Seen by Clinical Staff ONLY (RN/MA): No Wind Turbine Engineer Required: No PCP or OBGYN visit in last 3 months: Yes Hx Now: No Do You Feel Safe at Home: Yes Authorities Contacted: N/A Questionairres Past Medical History Past Medical History Have you ever been diagnosed with any of the following: Neurological Problems Seizures: No Cardiology Problems Hypercholesterolemia: Yes Congestive Heart Failure: No Hypertension: Yes Respiratory Problems Chronic Obstructive Pulmonary Disease (COPD): No Smoking: No Smoking Exposure: No Stomache/Intestinal Problems Hepatitis: No Genital/Urinary Problems Renal Disease: No Reproductive Problems Previous Pregnancies: Yes Musculoskeletal Problems Arthritis: Yes Endocrine Problems Diabetes Mellitus Type 1: No Diabetes Mellitus Type 2: No Hypothyroidism: Yes Other Problems Hospitalization: No Shingles: No Blood Transfusions: No Anesthesia Reactions: No Cancer: No Subjective Visit Visit for: follow up visit and knee (RIGHT KNEE TKA) Immunization / Flu Flu Vaccine in the Last 12 Months: Yes Flu Vaccine Exclusion Criteria: No Exclusion Criteria and Already Received History of Present Illness Chief complaint: Right total knee replacement Console is a pleasant 79-year-old female with right knee pain status post right total knee replacement. The pain is specifically improved. She is 6 months out from surgery. Personal History Red flag PMH: none Pain Pain level (0-10): 10 Pain duration: 06/2024 Pain location: anterior Pain quality: burning, tingling and other (specify) (SWELLING) Pain timing: night and increases with activity Associated signs & symptoms: numbness Ambulatory data Ambulatory device: walker and none Walking distance (minutes): 1 Treatments Number of previous injections: 0 Improvement with previous injections: No Number of Physical Therapy sessions: 0 Improvement with PT: No Improvement with NSAIDS: n/a Review of Systems Review of Systems: All systems negative unless otherwise noted in HPI.
== END 2024-12-19 11:27 | disposition home or self-care (01) ==
LOC: HODSRG 11:14
PROVIDERS: PCP Family Medicine; Referring Provider Family Medicine; Supervising Provider Orthopaedic Surgery Adult Reconstructive Orthopaedic Surgery; Visit Provider Orthopaedic Surgery Adult Reconstructive Orthopaedic Surgery
DX: M06.861 Other specified rheumatoid arthritis, right knee (principal); M25.561 Pain in right knee; Z96.651 Presence of right artificial knee joint; I10 Essential (primary) hypertension; E78.00 Pure hypercholesterolemia, unspecified; E03.9 Hypothyroidism, unspecified
CPT/HCPCS: 73564; 99213; G0463

== ENCOUNTER 2025-02-02 10:03 | Outpatient (RCR) | payer MEDICARE, SELFPAY ==
--- NOTE | 2025-02-02 13:46 | PTNOTE_ITS ---
PT OP Initial Eval Patient Information Outpatient Physical Therapy Treatment Date: 02/02/25 Visit Reasons: RT TKA Medical Diagnosis: M17.11 Treatment Dx #1: Right Knee Mobility Deficits Treatment Dx #2: Right Knee Pain Start of Care: 02/02/25 Date of Onset: 06/19/24 Smoking Status Smoking Status: Never smoker Initial Assessment Subjective: Pt is a 79 y/o female s/p right TKA 06/19/24. Pt completed a few weeks of therapy, however, had to stop due no further authorization. Pt still has pain (6/10) with activities. Pt has limitation with standing, walking, balance, une ghanshyam surfaces, stairs, getting in/out of the tub and performing recreational activities. According to daughter in law patient is sedentary at home and does not use her knee as instructed from family members. Objective: Right Knee AROM: -25 deg to 91 deg Right Knee MMTs: grossly 4-/5 Right Hip MMTs: grossly 3+/5 Muscle Length: Hs tightness Assessment: Pt demonstrate right knee mobility and strength deficits leading to difficulty with ADLs. Pt will attempt physical therapy to increase ROM, strength, and work on gait. If minimal progress towards goals is noted Pt will be refer back to surgeon for further consultation. 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
== END 2025-02-08 23:59 | disposition home or self-care (01) ==
LOC: CPTX 10:03
PROVIDERS: PCP Orthopaedic Surgery Adult Reconstructive Orthopaedic Surgery; Referring Provider Orthopaedic Surgery Adult Reconstructive Orthopaedic Surgery; Visit Provider Orthopaedic Surgery Adult Reconstructive Orthopaedic Surgery
DX: M25.561 Pain in right knee (principal); R26.2 Difficulty in walking, not elsewhere classified; R26.89 Other abnormalities of gait and mobility; Z96.651 Presence of right artificial knee joint; M17.11 Unilateral primary osteoarthritis, right knee
CPT/HCPCS: 97162

== ENCOUNTER 2025-03-09 08:30 | Outpatient (RCR) | payer MEDICARE, SELFPAY ==
--- NOTE | 2025-02-09 16:15 | PT.ODAYNRPT ---
PT Outpatient Daily Note OP Daily Note Outpatient Physical Therapy Treatment Date: 02/09/25 Visit Reasons: Rt TKA Subjective: Pt reports R knee is doing better since she was here last at PT but still can not fully bed or straighten knee. Objective: Please see flow sheet for ther ex list. Assessment: Worked on GT to improve heel strike and work on foot clearance when initiating step, pt can replicate with max cues and demonstration. Plan: Continue with POC. Length of Time (minutes) of Treatment: 30 Minutes Procedure Charges Therapeutic Exercise 30 minutes: Yes
--- NOTE | 2025-02-12 16:27 | PT.ODAYNRPT ---
PT Outpatient Daily Note OP Daily Note Outpatient Physical Therapy Treatment Date: 02/12/25 Visit Reasons: Rt TKA Subjective: No soreness to report after last PT session. Objective: Please see flow shett for ther ex list. Assessment: Focus on restoring ROM within pt tolerance. Plan: Continue with poC> Length of Time (minutes) of Treatment: 30 Minutes PLUMBING FOREMAN Service Modifier Method I: Divide the number of min of care provided by the PLUMBING FOREMAN/TING by the total min of care provided then multiply by 100. If greater than 11 percent modifier is required. Method II: Divide the total time of care provided to patient by 10 (round to the nearest whole number) and add 1 min. to set the minimum time requirement. If treatment total was 60 min., then 10% of 6 min PT CQ modifier applied: CQ Modifier applied Procedure Charges Therapeutic Exercise 30 minutes: Yes
--- NOTE | 2025-02-14 15:59 | PT.ODAYNRPT ---
PT Outpatient Daily Note OP Daily Note Outpatient Physical Therapy Treatment Date: 02/14/25 Visit Reasons: Rt TKA Subjective: Pt reports R knee is doing better, not using her FWW inside her home. Objective: Please see flow sheet for ther ex list. Assessment: Pt educated on importance of using FWW or 4WW for ambulation, pt demonstrates narrow based stride and poor foot clearance making pt high fall risk. Pt and pt family agreed for pt to continue use of AD to reduce fall risk for outdoor and community distance. Pt can ambulate in clinic with SPC with one epiose of pt swaying laterally but pt recovers footing. Plan: Continue with POC. Length of Time (minutes) of Treatment: 30 Minutes Procedure Charges Therapeutic Exercise 30 minutes: Yes
--- NOTE | 2025-02-21 12:52 | PT.ODAYNRPT ---
PT Outpatient Daily Note OP Daily Note Outpatient Physical Therapy Treatment Date: 02/21/25 Visit Reasons: Rt TKA Subjective: Pt's doing okay. Pt feels safer using walker with walking. Objective: Please see flow chart for list of her ex performed Assessment: able to tolerate longer sitting knee flexion stretch; cues to maintain stretch at the end range in order to increase knee flexion ROM. Pt demonstrate better and safer gait with increase JENNA using walker. Pt encouraged to continue to use walker for safer gait Plan: Continue with PT Length of Time (minutes) of Treatment: 30 Minutes Procedure Charges Therapeutic Exercise 30 minutes: Yes
--- NOTE | 2025-02-23 12:28 | PT.ODAYNRPT ---
PT Outpatient Daily Note OP Daily Note Outpatient Physical Therapy Treatment Date: 02/23/25 Visit Reasons: Rt TKA Subjective: Pt's knee is good but hip is very sore. Pt mentioned she's been using less of the walker at home and around the house. Objective: Please see flow chart for list of ther ex performed Assessment: able to maintain knee flexion stretch longer with less pain reported. Pt further demonstrate improved knee extension post LLPS exercise Plan: Continue with PT Length of Time (minutes) of Treatment: 30 Minutes Procedure Charges Therapeutic Exercise 30 minutes: Yes
--- NOTE | 2025-02-28 11:38 | PT.ODAYNRPT ---
PT Outpatient Daily Note OP Daily Note Outpatient Physical Therapy Treatment Date: 02/28/25 Visit Reasons: Rt TKA Subjective: Pt's knee is feeling better. Pt mentioned walking is much safer with her 4ww. Objective: Please see flow chart for list of ther ex performed Assessment: attempted step up exercise today with 6 step; cues to decrease use of UE coming up the step. Pt was able to complete 10 reps safely Plan: Continue with PT Length of Time (minutes) of Treatment: 30 Minutes Procedure Charges Therapeutic Exercise 30 minutes: Yes
--- NOTE | 2025-03-02 11:19 | PT.ODAYNRPT ---
PT Outpatient Daily Note OP Daily Note Outpatient Physical Therapy Treatment Date: 03/02/25 Visit Reasons: Rt TKA Subjective: According to patient's daughter in law. She has recently been diagnosed with dementia. Today Pt left the house and wander outside of the house. Pt's daughter also reported that patient has not been eating well; MD is aware and not doing anything. Objective: Please see flow chart for list of ther ex performed Assessment: Pt require frequent reminder to perform step up correctly. Educated family members that patient will need more direct supervision due to dementia. Family is planning to have a family meeting to address dementia concerns. Plan: Continue with PT Length of Time (minutes) of Treatment: 30 Minutes Procedure Charges Therapeutic Exercise 30 minutes: Yes
--- NOTE | 2025-03-08 13:15 | PT.ODAYNRPT ---
PT Outpatient Daily Note OP Daily Note Outpatient Physical Therapy Treatment Date: 03/08/25 Visit Reasons: Rt TKA Subjective: Pt brought in by family member. Objective: Please see flow sheet for ther ex list. Assessment: Pt guarded during self knee flexion stretches resulting in slow progress with ROM. Plan: Continue with POC. Length of Time (minutes) of Treatment: 30 Minutes Procedure Charges Therapeutic Exercise 30 minutes: Yes
--- NOTE | 2025-03-09 08:44 | PT.ODAYNRPT ---
PT Outpatient Daily Note OP Daily Note Outpatient Physical Therapy Treatment Date: 03/09/25 Visit Reasons: Rt TKA Subjective: Pt is doing oka this AM. No new concerns to report. Objective: Please see flow chart for list of ther ex performed Assessment: frequent cues given this morning to correct exercises; patient is not follow command. This may relate to patient's recent diagnosed of dementia which family is aware. Plan: Continue with PT Length of Time (minutes) of Treatment: 30 Minutes Procedure Charges Therapeutic Exercise 30 minutes: Yes
== END 2025-03-11 23:59 | disposition home or self-care (01) ==
LOC: CPTX 08:30
PROVIDERS: PCP Orthopaedic Surgery Adult Reconstructive Orthopaedic Surgery; Referring Provider Orthopaedic Surgery Adult Reconstructive Orthopaedic Surgery; Visit Provider Orthopaedic Surgery Adult Reconstructive Orthopaedic Surgery
DX: M25.561 Pain in right knee (principal); R26.2 Difficulty in walking, not elsewhere classified; R26.89 Other abnormalities of gait and mobility; Z96.651 Presence of right artificial knee joint; M17.11 Unilateral primary osteoarthritis, right knee
CPT/HCPCS: 97110

== ENCOUNTER 2025-03-16 15:00 | Outpatient (RCR) | payer MEDICARE, SELFPAY ==
--- NOTE | 2025-03-13 16:07 | PT.ODAYNRPT ---
PT Outpatient Daily Note OP Daily Note Outpatient Physical Therapy Treatment Date: 03/13/25 Visit Reasons: RT TKA Subjective: No new complaints. Objective: Please see flow sheet for ther ex list. Assessment: Pt instructed on mini squats exercise requires verbal and tactile cues to avoid excessive anterior tibial translation. Plan: Continue with POC. Length of Time (minutes) of Treatment: 30 Minutes HOUSEKEEPING SUPERVISOR Service Modifier Method I: Divide the number of min of care provided by the HOUSEKEEPING SUPERVISOR/WIRE COINER by the total min of care provided then multiply by 100. If greater than 11 percent modifier is required. Method II: Divide the total time of care provided to patient by 10 (round to the nearest whole number) and add 1 min. to set the minimum time requirement. If treatment total was 60 min., then 10% of 6 min PT CQ modifier applied: CQ Modifier applied Procedure Charges Therapeutic Exercise 30 minutes: Yes
--- NOTE | 2025-03-16 15:09 | PT.ODS1RPT ---
PT OP Progress/Discharge Note Date of Service: 03/16/25 Progress Note/DC Note Progress Note/Discharge Note: DC Note Patient Information Visit Reasons: RT TKA Medical Diagnosis: M17.11 Treatment Dx #1: Right Knee Mobility Deficits Service Discharge Date: 03/16/25 Status Subjective: Pt's knee is better. Pt has been able to walk, stand, perform chores, and stairs with less limitation. Pt has a follow up appt with surgeon next month. Objective: Right Knee AROM: -11 deg to 102 deg Right Knee MMTs: grossly 4/5 Right Hip MMTs: grossly 4-/5 Assessment: Pt demonstrate slight improvement with knee ROM and strength allowing her to resume ADLs with less limitation. Pt will no longer benefit from physical therapy due to plateau towards goals. Pt was instructed on HEP last session and educated to continue exercises to maintain overall mobility. Pt performed all exercises safely, thank you for your referrals. Plan: D/C home with HEP and follow up with surgeon PRN Procedure Charges Therapeutic Exercise 30 minutes: Yes
== END 2025-04-10 23:59 | disposition home or self-care (01) ==
LOC: CPTX 15:00
PROVIDERS: PCP Orthopaedic Surgery Adult Reconstructive Orthopaedic Surgery; Referring Provider Orthopaedic Surgery Adult Reconstructive Orthopaedic Surgery; Visit Provider Orthopaedic Surgery Adult Reconstructive Orthopaedic Surgery
DX: M25.561 Pain in right knee (principal); R26.2 Difficulty in walking, not elsewhere classified; R26.89 Other abnormalities of gait and mobility; Z47.1 Aftercare following joint replacement surgery; Z96.651 Presence of right artificial knee joint
CPT/HCPCS: 97110